=== PATIENT | female | born 1985 | race Caucasian/White ===

== ENCOUNTER 2020-01-24 02:26 | Emergency (ER) | payer OTHER ==
--- NOTE | 2020-01-24 02:53 | ER Document Report ---
ED General - General Chief Complaint: Abdominal Pain Stated Complaint: ABDOMINAL PAIN Time Seen by Provider: 01/24/20 02:52 - HPI Notes: 34-year-old female presents with abdominal pain. Patient states that she was sleeping and awoke suddenly with epigastric pain, it is sharp and stabbing, feels like a knife is being twisted inside of her. The pain radiates to her back and in between her shoulder blades. She has not taken any medications at home. No nausea or vomiting. She states she has never had pain like this before. She does still have a gallbladder. She denies alcohol use. Patient also mentions that she was sick for 3 weeks in December, states that she was diagnosed with pyelo and had daily fevers of 103, she was treated at the [facility] with IV antibiotics. She reports dysuria/flank pain have since r esolved and she is currently not on any medications. - Related Data Allergies/Adverse Reactions: No Known Allergies Allergy (Unverified 01/24/20 02:34) Past Medical History - General Information source: Patient - Social History Smoking Status: Never Smoker Frequency of alcohol use: None Drug Abuse: None Family History: Reviewed & Not Pertinent Patient has homicidal ideation: No Review of Systems - Review of Systems Constitutional: denies: Fever EENT: No symptoms reported Cardiovascular: No symptoms reported Respiratory: No symptoms reported Gastrointestinal: Abdominal pain. denies: Diarrhea, Nausea, Vomiting Genitourinary: denies: Dysuria Female Genitourinary: No symptoms reported Musculoskeletal: Back pain Skin: No symptoms reported Hematologic/Lymphatic: No symptoms reported Neurological/Psychological: No symptoms reported Physical Exam - Vital signs Vitals: Temp Pulse Resp BP Pulse Ox 98.2 F 84 16 116/78 99 01/24/20 02:34 01/24/20 02:34 01/24/20 02:34 01/24/20 02:34 01/24/20 02:34 - General General appearance: Alert - HEENT Head: Normocephalic, Atraumatic Eyes: No: Scleral icterus Extraocular movements intact: Yes Pupils: PERRL - Respiratory Chest status: Nontender Breath sounds: Normal - Cardiovascular Rhythm: Regular Heart sounds: Normal auscultation - Abdominal Distension: No distension Bowel sounds: Normal Tenderness: Tender - Epigastric and right upper quadrant. No: Guarding, Rebound - Extremities General upper extremity: Normal ROM General lower extremity: Normal ROM - Neurological Neuro grossly intact: Yes Cognition: Normal Orientation: AAOx4 - Psychological Associated symptoms: Normal affect - Skin Skin Temperature: Warm Skin Color: negative: Jaundiced Course - Re-evaluation Re-evalutation: 34-year-old female with sudden onset of epigastric pain, has tenderness to this area along with right upper quadrant on exam, abdomen is overall nonperitoneal. She is afebrile and hemodynamically stable. No signs of jaundice. Given her tenderness concern for biliary pathology, will start with right upper quadrant ultrasound to assess for acute cholecystitis or biliary duct dilation. Pancreatitis possible though she does not have any identifiable risk factors for this. Because of be reflux related. We will start symptomatic control with Toradol and Pepcid. EMS did a rapid Covid swab which was negative, able to observe the swab at bedside. 01/24/20 04:23 No leukocytosis or left shift. Electrolytes within normal limits. Creatinine within normal limits. T bili within normal limits. Transaminitis present. Elevated lipase. Urine with 2+ bacteria and small leuk esterase, she denies symptoms, however given her recent hospitalization last month we will send for culture Ultrasound imaging reviewed and report his now available. Per radiology there is a small amount of debris in the gallbladder, no thickening, gallstones or pericholecystic fluid seen. However her CBD is 6 mm which is abnormal given her age. Given that she has an elevated lipase and LFTs, will pursue MRCP to evaluate for choledocholithiasis or other obstructing process. 01/24/20 04:35 Updated patient on plan for MRCP. She reports no pain relief with Toradol, will trial morphine. Instructed her to be n.p.o. until study is obtained. 01/24/20 06:02 Care to be turned over to Dr. Mesa, pending MRCP, further disposition from there - Vital Signs Vital signs: Temp Pulse Resp BP Pulse Ox 98.3 F 84 14 120/74 99 01/24/20 05:12 01/24/20 05:12 01/24/20 05:12 01/24/20 05:12 01/24/20 05:12 - Laboratory Result Diagrams: 01/24/20 02:49 01/24/20 02:49 Laboratory results interpreted by me: 01/24/20 01/24/2001/23/20 02:49 02:49 02:49 Lymph % (Auto) 46.2 H Glucose 118 H AST 62 H ALT 114 H Lipase 674.4 H Urine Blood SMALL H Urine Urobilinogen 4.0 H Ur Leukocyte Esterase SMALL H - Diagnostic Test Radiology reviewed: Image reviewed, Reports reviewed Discharge - Discharge Clinical Impression: Epigastric abdominal pain, Transaminitis, Elevated lipase Disposition: OTHER
[2020-01-24] MEDS ORDERED: KETOROLAC TROMETHAMINE INJ/PF 30 MG/1 ML SDV IV ONE (03:01)
[2020-01-24] MEDS ORDERED: FAMOTIDINE INJ/PF 20 MG/2 ML SDV IV ONE (03:01)
[2020-01-24 03:06] LABS: ABSOLUTE BASOPHILS # (AUTO) 0.1 10^3/uL (0.0-0.2); ABSOLUTE EOSINOPHILS # (AUTO) 0.1 10^3/uL (0.0-0.6); ABSOLUTE LYMPHOCYTES (AUTO) 3.3 10^3/uL (0.5-4.7); ABSOLUTE MONOCYTES (AUTO) 0.7 10^3/uL (0.1-1.4); BASOPHILS % (AUTO) 0.8 % (0-2); EOSINOPHILS % (AUTO) 1.3 % (0-6); HEMATOCRIT 43.2 % (36.0-47.0); HEMOGLOBIN 14.8 g/dL (12.0-15.5); LYMPHOCYTES % (AUTO) 46.2 % (13-45); MEAN CORPUSCULAR HEMOGLOBIN 29.7 pg (27.0-33.4); MEAN CORPUSCULAR HGB CONC 34.2 g/dL (32.0-36.0); MEAN CORPUSCULAR VOLUME 87 fl (80-97); MONOCYTES % (AUTO) 9.6 % (3-13); PLATELET COUNT 391 10^3/uL (150-450); RED BLOOD COUNT 4.97 10^6/uL (3.72-5.28); RED CELL DISTRIBUTION WIDTH 12.9 % (11.5-14.0); SEGMENTED NEUTROPHILS % (AUTO) 42.1 % (42-78); TOTAL CELLS COUNTED % (AUTO) 100 %; WHITE BLOOD COUNT 7.1 10^3/uL (4.0-10.5)
[2020-01-24 03:21] LABS: ALBUMIN 4.1 g/dL (3.5-5.0); ALKALINE PHOSPHATASE 72 U/L (38-126); ANION GAP 7 (5-19); ASPARTATE AMINO TRANSFERASE 62 U/L (14-36); BILIRUBIN,DIRECT 0.3 mg/dL (0.0-0.4); BILIRUBIN,TOTAL 0.5 mg/dL (0.2-1.3); BLOOD UREA NITROGEN 11 mg/dL (7-20); CALCIUM 9.7 mg/dL (8.4-10.2); CARBON DIOXIDE 29 mmol/L (22-30); CHLORIDE 105 mmol/L (98-107); GLUCOSE 118 mg/dL (75-110); TOTAL PROTEIN 7.5 g/dL (6.3-8.2)
[2020-01-24 03:28] LABS: APPEARANCE,URINE SLIGHTLY-CLOUDY; BILIRUBIN,URINE NEGATIVE (NEGATIVE); COLOR,URINE YELLOW; GLUCOSE, URINE NEGATIVE (NEGATIVE); KETONES,URINE NEGATIVE (NEGATIVE); LEUKOCYTE ESTERASE,URINE SMALL (NEGATIVE); NITRITE,URINE NEGATIVE (NEGATIVE); PROTEIN,URINE NEGATIVE (NEGATIVE); URINE SPECIFIC GRAVITY 1.024
--- NOTE | 2020-01-24 04:13 | RADIOLOGY REPORT (SQ) ---
CLINICAL HISTORY: epigastric pain rad to back, eval acute jomar COMPARISON: None. 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 There is no biliary dilatation. Common bile duct measures 6 mm. Portal vein is patent. Gallbladder contains small amount of debris without wall thickening, gallstones or pericholecystic fluid. There is a reported negative sonographic Chapa sign. Right kidney measures 11.8 cm without hydronephrosis. IMPRESSION: No acute findings.
--- NOTE | 2020-01-24 04:33 | RADIOLOGY REPORT (SQ) ---
CLINICAL HISTORY: eval consolidation COMPARISON: None. 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 There is a minimal opacity in the right lung base. There is no pleural effusion. There is no pneumothorax. There are no acute osseous findings. IMPRESSION: Questionable right basilar pneumonia.
[2020-01-24] MEDS ORDERED: MORPHINE SULFATE 10 MG/ML INJ IV ONE ×2 (04:34→10:15)
[2020-01-24] MEDS ORDERED: RINGERS SOLUTION,LACTATED 1,000 ML IV ONE (04:35)
[2020-01-24] MEDS ORDERED: METOCLOPRAMIDE HCL INJ/PF 10 MG/2 ML SDV IV ONE (08:16)
--- NOTE | 2020-01-24 09:03 | RADIOLOGY REPORT (SQ) ---
EXAM DESCRIPTION: MRI ABDOMEN WITHOUT IMAGES COMPLETED DATE/TIME: 01/24/2020 8:24 am REASON FOR STUDY: MRCP. eval CBD stone COMPARISON: 01/24/2020 chest radiograph and right upper quadrant ultrasound. TECHNIQUE: Noncontrast MRCP. Source and MIP images reviewed. LIMITATIONS: None. FINDINGS: GALLBLADDER: Normal. INTRAHEPATIC DUCTS: Nondilated. EXTRAHEPATIC DUCTS: Common duct is normal caliber. No dilatation of the pancreatic duct. No ductal filling defects noted. PANCREAS: Generally homogeneous, no gross mass or significant signal alteration. No surrounding infl ammatory changes or fluid. Pancreatic duct is normal. LIVER, SPLEEN, KIDNEYS, ADRENALS: No significant abnormality. VESSELS: No evidence of aneurysm. Grossly appropriate flow voids in the major vascular structures. LUNG BASES: Multifocal airspace opacities seen of the right lung base, similar to that demonstrated o n comparison chest radiograph. Similar, more subtle findings are seen of the left lung base. OTHER: No other significant finding. IMPRESSION: NORMAL HEPATOBILIARY SYSTEM. NO STONES OR COMMON DUCT ABNORMALITIES. BIBASILAR MULTIFOCAL CONSOLIDATION CONSISTENT WITH MULTI LOBAR PNEUMONIA. TECHNICAL DOCUMENTATION: JOB ID: [id number] 2010 [employer]- All Rights Reserved Reading location - IP/workstation name: [email or web address]
[2020-01-24] MEDS ORDERED: NORMAL SALINE 1000 ML 1,000 ML IV ONE (09:29)
--- NOTE | 2020-01-24 10:08 | RADIOLOGY REPORT (SQ) ---
EXAM DESCRIPTION: CTA CHEST IMAGES COMPLETED DATE/TIME: 01/24/2020 9:54 am REASON FOR STUDY: cp/back pain/fever/pna r/o pe COMPARISON: 01/24/2020 TECHNIQUE: CT scan of the chest performed using helical scanning technique with dynamic intravenous contrast injection. Images reviewed with lung, soft tissue and bone windows. Reconstructed coronal and sagittal MPR images reviewed. Additional 3 dimensional post-processing performed to develop Maximal Intensity Projection images (SC P). All images stored on PACS. All CT scanners at this facility use dose modulation, iterative reconstruction, and/or weight based d osing when appropriate to reduce radiation dose to as low as reasonably achievable (ALARA). [facility]: Dose Right [facility]: CareDose [facility]: Dose Right [facility]: Teradose 4D [facility]: CRV CONTRAST TYPE AND DOSE: contrast/concentration: Isovue 350.00 mmol/ml; Total Contrast Delivered: 52. 0 ml; Total Saline Delivered: 70.0 ml Contrast bolus adequate for pulmonary arteries and aorta. RENAL FUNCTION: BUN 11; creatinine 0.6 RADIATION DOSE: CT Rad equipment meets quality standard of care and radiation dose reduction techniq ues were employed. CTDIvol: 6.6 - 14.3 mGy. DLP: 450 mGy-cm. . LIMITATIONS: None. FINDINGS: LUNGS AND PLEURA: Multifocal mixed interstitial and airspace opacities in a predominantly peripheral distribution involving the right lower lobe more so than the left lower lobe and left uppe r lobe. No pleural effusion. No pneumothorax. AORTA AND GREAT VESSELS: No aneurysm. No dissection. HEART: No pericardial effusion. No significant coronary artery calcifications. PULMONARY ARTERIES: No emboli visualized in the main pulmonary arteries or the segmental branches. HILAR AND MEDIASTINAL STRUCTURES: No identified masses or abnormal nodes. HARDWARE: None in the chest. UPPER ABDOMEN: No significant findings. Limited exam. THYROID AND OTHER SOFT TISSUES: No masses. No adenopathy. BONES: No acute or significant finding. 3D MIPS: Confirm above findings. OTHER: No other significant finding. IMPRESSION: NORMAL CTA OF THE CHEST. NO PULMONARY EMBOLI. MULTIFOCAL MIXED INTERSTITIAL AND AIRSPACE OPACITIES CONSISTENT WITH MULTI LOBAR PNEUMONIA. GIVEN DI STRIBUTION, RECOMMEND CONSIDERATION FOR ATYPICAL ETIOLOGIES TO INCLUDE VIRAL/COVID IN TREATMENT PLANN ING. COMMENT: Quality ID # [id number]: Final reports with documentation of one or more dose reduction techniques (e.g., Automated exposure control, adjustment of the mA and/or kV according to patient size, use of iterative reconstruction technique) TECHNICAL DOCUMENTATION: JOB ID: [id number] 2010 [employer]- All Rights Reserved Reading location - IP/workstation name: [email or web address]
[2020-01-24 11:03] VITALS: BP 99/54
== END 2020-01-24 11:00 | disposition home or self-care (01) ==
LOC: EDBD → ER 02:26
DX: U07.1 COVID-19 (principal); J12.89 Other viral pneumonia; J18.9 Pneumonia, unspecified organism; R10.13 Epigastric pain; R74.01 Elevation of levels of liver transaminase levels; R74.8 Abnormal levels of other serum enzymes; R10.9 Unspecified abdominal pain
CPT/HCPCS: 96376; 99285; 96361; 96374; 96375; 36415; 87086; 83690; 85025; 87635; 81025; 80053; 81001; 74181; 71045; 76705; 71275; J1885; J2765; J2270; J7030; J7120; S0028; C9803

== ENCOUNTER 2020-01-28 03:49 | Emergency (ER) | payer BC, OTHER ==
[2020-01-28 07:05] LABS: ABSOLUTE LYMPHOCYTES (AUTO) 1.8 10^3/uL (0.5-4.7); ABSOLUTE MONOCYTES (AUTO) 0.9 10^3/uL (0.1-1.4); ABSOLUTE NEUT (AUTO) 7.6 10^3/uL (1.7-8.2); BASOPHILS % (AUTO) 0.4 % (0-2); EOSINOPHILS % (AUTO) 0.1 % (0-6); HEMATOCRIT 40.3 % (36.0-47.0); LYMPHOCYTES % (AUTO) 17.2 % (13-45); MEAN CORPUSCULAR HEMOGLOBIN 30.5 pg (27.0-33.4); MEAN CORPUSCULAR HGB CONC 34.8 g/dL (32.0-36.0); MEAN CORPUSCULAR VOLUME 88 fl (80-97); MONOCYTES % (AUTO) 8.7 % (3-13); PLATELET COUNT 349 10^3/uL (150-450); RED BLOOD COUNT 4.61 10^6/uL (3.72-5.28); RED CELL DISTRIBUTION WIDTH 12.9 % (11.5-14.0); SEGMENTED NEUTROPHILS % (AUTO) 73.6 % (42-78); TOTAL CELLS COUNTED % (AUTO) 100 %; WHITE BLOOD COUNT 10.4 10^3/uL (4.0-10.5)
[2020-01-28 07:24] LABS: ALKALINE PHOSPHATASE 90 U/L (38-126); ANION GAP 9 (5-19); ASPARTATE AMINO TRANSFERASE 368 U/L (14-36); BILIRUBIN,DIRECT 0.5 mg/dL (0.0-0.4); BILIRUBIN,TOTAL 0.9 mg/dL (0.2-1.3); BLOOD UREA NITROGEN 9 mg/dL (7-20); CALCIUM 9.4 mg/dL (8.4-10.2); CARBON DIOXIDE 28 mmol/L (22-30); CHLORIDE 104 mmol/L (98-107); GLUCOSE 107 mg/dL (75-110); POTASSIUM 4.5 mmol/L (3.6-5.0); TOTAL PROTEIN 6.9 g/dL (6.3-8.2)
--- NOTE | 2020-01-28 08:06 | ER Document Report ---
ED Respiratory Problem - General Chief Complaint: Shortness Of Breath Stated Complaint: DIFFICULTY IN BREATHING Time Seen by Provider: 01/28/20 08:06 Mode of Arrival: Ambulatory Information source: Patient - HPI Notes: 34-year-old female presents to ED for reevaluation of increased shortness of breath and epigastric abdominal pain. Patient was seen on 01/23 and notes that she has had increased pain and shortness of breath. Reports she was evaluated by rapid Covid swab by EMS that day and found be negative however did have an additional swab performed at this facility on her evaluation at that time. Reports that she was told she had elevated liver functions as well as possible pancreatitis and was placed on medications for management. Also given a course of antibiotics for pneumonia. Reports she has completed the course of those medications and is still continuing to have shortness of breath and discomfort. Patient states she had a the department felt that she missed on Tuesday and was to call them for Covid results today however came back here as her symptoms w orsened. Patient denies any fever or chills at this time. Denies urinary complaints. Reports he has not been eating and drinking very well. Denies any nausea or vomiting. - Related Data Allergies/Adverse Reactions: No Known Allergies Allergy (Unverified 01/24/20 02:34) Past Medical History - Social History Smoking Status: Never Smoker Family History: Reviewed & Not Pertinent Review of Systems - Review of Systems Notes: REVIEW OF SYSTEMS: CONSTITUTIONAL : Denies fever, chills, or sweats. + recent illness. EENT: Denies eye, ear, throat, or mouth pain or symptoms. Denies nasal or s inus congestion. CARDIOVASCULAR: Denies chest pain. RESPIRATORY: + cough, cold, or chest congestion. + shortness of breath, difficulty breathing, Denies wheezing. GASTROINTESTINAL: Denies abdominal pain. Denies nausea, vomiting, or diarrhea. Denies constipation. Last BM: GENITOURINARY: Denies difficulty urinating, painful urination, burning, frequency, or blood in urine. FEMALE GENITOURINARY: Denies vaginal bleeding, abnormal or irregular periods. LMP: MUSCULOSKELETAL: Denies neck or back pain or joint pain or swelling. SKIN: Denies rash or skin lesions. HEMATOLOGIC : Denies easy bruising or bleeding. LYMPHATIC: Denies swollen, enlarged glands. NEUROLOGICAL: Denies altered mental status or loss of consciousness. Denies headache. Denies weakness or paralysis or loss of use of either side. Denies problems with gait or speech. Denies sensory or motor loss. PSYCHIATRIC: Denies anxiety or stress or depression. ALL OTHER SYSTEMS REVIEWED AND NEGATIVE. Physical Exam - Vital signs Vitals: Temp Pulse Resp BP Pulse Ox 97.9 F 93 20 110/75 93 01/28/20 04:00 01/28/20 04:00 01/28/20 04:00 01/28/20 04:00 01/28/20 04:00 General: No acute distress. Alert and oriented x3. Sitting comfortably in a stretcher. Skin: Intact without any jaundice, pallor, or erythema. Warm and dry. HEENT: Normocephalic, atraumatic. Pupils are equal round reactive to light and accommodation. Extraocular movements are intact. TMs without erythema or bulging. Canals are clear. Nares patent without any discharge. Teeth in good condition. Pharynx without erythema, edema, or exudates. No tonsillar enlargement. Uvula is midline. Airway is patent. Neck: Supple with no lymphadenopathy. Full range of motion. Heart: Regular rate and rhythm. S1,S2. No murmurs, rubs, or gallops. Lungs: Diminished bilateral bases. No wheezes, rhonchi, rales. Equal chest expansion. No retractions. Abdomen: Soft, Tender to palpation in epigastric region, nondistended. Positive bowel sounds in all 4 quadrants. No hepatosplenomegaly. No masses. No CVA tenderness bilaterally. Neuro: GCS 15. Moving all extremities without discomfort. Extremities: No calf tenderness or edema. No cyanosis or clubbing. Radial and pedal pulses 2+ bilaterally. Brisk capillary refill. Psych: Mood and affect appropriate. Course - Re-evaluation Re-evalutation: 01/28/20 17:54 4-year-old female who was recently diagnosed with Covid presents to ED for evaluation of increased shortness of breath. Patient notes that she was also recently evaluated here with concern for pancreatitis due to epigastric pain. Patient underwent multiple tests including an MRCP, ultrasound of the right upper quadrant, and CT angiography imaging of the chest and abdomen. Patient states that the pain in the abdominal region has persisted and she subsequently returned here rather than following up with her primary care provider. Patient was evaluated today with repeat labs which are notable for increases in her LFTs with an AST of 368 and ALT of 261. Her direct bili is also mildly increased from 0.3-0.5. Her lipase has incidentally improved from the 600s to 319. Did complete a course of azithromycin for bilateral lower lobe pneumonia found during her previous visit. Discussed with patient that this may be responsible for the increase in her transaminases. This is hepatically excreted. As discussed with Dr. Worrell, my attending physician, who also evaluated patient and is in agreement with her plan of care. Repeat chest x-ray shows that she does still have pneumonia however this lags behind the clinical picture. Patient was treated symptomatically with steroids and albuterol with improvement. She will be continued on this medication. We will hold further antibiotics at this time. Recommended to patient that she follow-up with her primary care physician as recommended. Patient will be kept on additional Covid precautions at this time. Advised to return to ED for any new or worsening symptoms. She understands course of management and is in agreement with her care plan. - Vital Signs Vital signs: Temp Pulse Resp BP Pulse Ox 98.5 F 72 15 108/62 97 01/28/20 11:01 01/28/20 07:35 01/28/20 11:01 01/28/20 11:01 01/28/20 11:01 - Laboratory Result Diagrams: 01/28/20 06:45 01/28/20 06:45 Laboratory results interpreted by me: 01/28/20 01/28/20 01/28/20 06:45 06:45 08:35 Direct Bilirubin 0.5 H AST 368 H ALT 261 H Lipase 319.2 H Urine Protein 30 H Urine Ketones 20 H Urine Bilirubin SMALL H Urine Urobilinogen 4.0 H - Diagnostic Test Radiology reviewed: Image reviewed - EKG Interpretation by Me Rate: Normal Discharge - Discharge Clinical Impression: COVID-19, Transaminitis, Epigastric abdominal pain, Person under investigation for COVID-19 Condition: Stable Disposition: HOME, SELF-CARE Instructions: COVID-19 Guidance for Persons Under Investigation, Abdominal Pain ([facility]) Prescriptions: Prednisone [Deltasone 20 mg Tablet] 2 tab PO DAILY 5 Days #10 tablet Prednisone [Deltasone 20 mg Tablet] 2 tab PO DAILY 5 Days #10 tablet Albuterol Sulfate [Proair HFA Inhalation Aerosol 8.5 gm MDI] 2 puff IH Q4H PRN #1 mdi PRN Reason: Albuterol Sulfate [Proair HFA Inhalation Aerosol 8.5 gm MDI] 2 puff IH Q4H PRN #1 mdi PRN Reason:
--- NOTE | 2020-01-28 08:14 | EKG REPORT ---
SEVERITY:- NORMAL ECG - SINUS RHYTHM : Confirmed by: Tamica Rodriguez 28-Jan-2020 08:13:15
--- NOTE | 2020-01-28 08:20 | RADIOLOGY REPORT (SQ) ---
EXAM DESCRIPTION: CHEST SINGLE VIEW IMAGES COMPLETED DATE/TIME: 01/28/2020 7:46 am REASON FOR STUDY: SOB COMPARISON: AP view of the chest on 01/24/2020. EXAM PARAMETERS: NUMBER OF VIEWS: One view. TECHNIQUE: An AP view of the chest was obtained. RADIATION DOSE: NA LIMITATIONS: None. FINDINGS: LUNGS AND PLEURA: Persistent and unchanged patchy bibasilar parenchymal opacities. There is no sizable pleural effusion or pneumothorax. MEDIASTINUM AND HILAR STRUCTURES: No mediastinal or hilar contour abnormality. HEART AND VASCULAR STRUCTURES: The cardiac silhouette and pulmonary vasculature are within normal winn its. BONES: Mild dextroconvex curvature of the lumbar spine. HARDWARE: None in the chest. OTHER: No other finding. IMPRESSION: Persistent and unchanged patchy bibasilar parenchymal opacities. TECHNICAL DOCUMENTATION: JOB ID: [id number] 2010 [employer]- All Rights Reserved Reading location - IP/workstation name: [email or web address]
[2020-01-28] MEDS ORDERED: ALBUTEROL SULFATE 0.083% NEB 2.5 MG/3 ML AMPUL NEB ONE (08:36)
[2020-01-28] MEDS ORDERED: METHYLPREDNISOLONE INJ 125 MG/2 ML SDV IV ONE (08:36)
[2020-01-28] MEDS ORDERED: KETOROLAC TROMETHAMINE INJ/PF 30 MG/1 ML SDV IV ONE (08:37)
[2020-01-28] MEDS ORDERED: NORMAL SALINE 1000 ML 1,000 ML IV ONE (08:58)
[2020-01-28 09:00] LABS: APPEARANCE,URINE CLEAR; BILIRUBIN,URINE SMALL (NEGATIVE); CALCIUM OXALATE CRYSTALS,URINE FEW /HPF; COLOR,URINE AMBER; GLUCOSE, URINE NEGATIVE (NEGATIVE); KETONES,URINE 20 mg/dL (NEGATIVE); LEUKOCYTE ESTERASE,URINE NEGATIVE (NEGATIVE); NITRITE,URINE NEGATIVE (NEGATIVE); PROTEIN,URINE 30 mg/dL (NEGATIVE); URINE SPECIFIC GRAVITY 1.031
[2020-01-28 12:49] VITALS: BP 108/62
== END 2020-01-28 12:00 | disposition home or self-care (01) ==
LOC: ER 03:49
DX: U07.1 COVID-19 (principal); R74.01 Elevation of levels of liver transaminase levels; R06.02 Shortness of breath; R05 Cough; R10.13 Epigastric pain; R79.89 Other specified abnormal findings of blood chemistry
CPT/HCPCS: 93005; 94640; 99285; 96361; 96374; 96375; 36415; 87040; 83690; 85025; 80053; 81001; 84484; 71045; 93010; J2930; J1885; J7030; J7613